=== PATIENT | female | born 1945 | race African-American/Black ===

== ENCOUNTER → 2018-01-12 | Outpatient (CLI) | payer MEDICARE, BC ==
--- NOTE | 2018-01-13 12:57 | RAD ---
DATE: 01/12/2018 EXAM: MAMMO RYLAN SCREENING BILATERAL HISTORY: Routine screening COMPARISON: 12/14/2016 This study was interpreted with the benefit of Computerized Aided Detection (CAD). The breast parenchyma is heterogeneously dense, which could reduce sensitivity of mammography. Breast parenchyma level C. FINDINGS: 2-D and 3-D tomosynthesis imaging was performed in CC and MLO projections. There is a 7 mm oval-shaped nodule in the left breast at the 12:00 location, best seen on CC rylan image #31 and oblique rylan image #33. It appears to have been present on multiple previous exams and is unchanged. No new or enlarging breast densities are seen. Benign type calcifications are present in both breasts. No suspicious microcalcifications have developed. IMPRESSION: Stable mammograms without evidence of malignancy. BI-RADS CATEGORY: 2 BENIGN FINDING(S) RECOMMENDED FOLLOW-UP: 12M 12 MONTH FOLLOW-UP PQRS compliance statement: Patient information was entered into a reminder system with a target due date for the next mammogram. Mammography is a sensitive method for finding small breast cancers, but it does not detect them all and is not a substitute for careful clinical examination. A negative mammogram does not negate a clinically suspicious finding and should not result in delay in biopsying a clinically suspicious abnormality. "Our facility is accredited by the [employer] Mammography Program."
== END | disposition home or self-care (01) ==
LOC: MAMMO 11:27
PROVIDERS: ATTEND Family Medicine
DX: Z12.31 Encounter for screening mammogram for malignant neoplasm of breast (principal)
CPT/HCPCS: 77063; 77067

== ENCOUNTER → 2019-01-26 | Outpatient (CLI) | payer MEDICARE, BC ==
--- NOTE | 2019-01-26 14:01 | RAD ---
DATE: 01/26/2019 EXAM: MAMMO RYLAN SCREENING BILATERAL HISTORY: Routine screening COMPARISON: 01/12/2018 This study was interpreted with the benefit of Computerized Aided Detection (CAD). Breast Density: HETERO The breast parenchyma is heterogenously dense, which could reduce sensitivity of mammography. Breast parenchyma level C. FINDINGS: 2-D and 3-D tomosynthesis imaging was performed in CC and MLO projections. A small smooth nodule at the 12:00 location in the left breast is unchanged. No new or enlarging breast densities are seen. Scattered benign type calcifications are present. No suspicious microcalcifications have developed. IMPRESSION: Stable mammograms without evidence of malignancy. BI-RADS CATEGORY: 2 BENIGN FINDING(S) RECOMMENDED FOLLOW-UP: 12M 12 MONTH FOLLOW-UP PQRS compliance statement: Patient information was entered into a reminder system with a target due date for the next mammogram. Mammography is a sensitive method for finding small breast cancers, but it does not detect them all and is not a substitute for careful clinical examination. A negative mammogram does not negate a clinically suspicious finding and should not result in delay in biopsying a clinically suspicious abnormality. "Our facility is accredited by the [employer] Mammography Program."
== END | disposition home or self-care (01) ==
LOC: MAMMO 11:04
PROVIDERS: ATTEND Family Medicine
DX: Z12.31 Encounter for screening mammogram for malignant neoplasm of breast (principal)
CPT/HCPCS: 77063; 77067

== ENCOUNTER → 2020-07-22 | Outpatient (CLI) | payer MEDICARE, BC ==
[~2020-07-22] MED LIST: IOHEXOL 350 MG/ML 100 ML VIAL. IV ONE
--- NOTE | 2020-07-22 14:35 | RAD ---
EXAM: CT chest with contrast - pulmonary embolus protocol CLINICAL HISTORY: Reason: COUGH, ELEVATED D DIMER / Spl. Instructions: SMOKER X 50 YRS, LESS 1/2 PK/DAY, EMPHYSEMA, HEART DZ, BLADDER CA / History: . COMPARISON: None. TECHNIQUE: CT of the chest following the administration of intravenous contrast during the pulmonary arterial phase. Axial, coronal and sagittal reformatted images were generated including MIP images. ---PQRS compliance statement - One or more of the following individualized dose reduction techniques were utilized for this study: 1. Automated exposure control 2. Adjustment of the mA and/or kV according to patient size 3. Use of iterative reconstruction technique--- FINDINGS: CHEST: Diagnostic quality: Adequate. Pulmonary emboli: None seen Right heart strain: None Pulmonary arteries: Normal in caliber. Heart is not enlarged. No pericardial effusion. Aortic root calcifications are seen. Coronary artery calcifications are seen. No pleural effusion or pneumothorax. No axillary lymphadenopathy. Precarinal lymph node measures 1.9 x 1.5 cm (series 4 image 47). AP window lymph node is enlarged measuring 1.8 x 1.1 cm. Enlarged hilar lymph nodes are also seen. 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 Landscape [employer] left hilar lymph node measures 1.8 x 1.3 cm. Bilateral groundglass opacities are seen. No suspicious lung nodule or mass.Emphysematous changes. Linear interstitial opacities bilaterally. No lobar consolidation. Visualized Upper abdomen: Left upper pole renal cyst is seen. Right hepatic lobe cyst is noted. No further follow-up is necessary. Since aortic calcifications are seen. Bones: Multilevel compression fractures are seen, T9-10-11, age-indeterminate. IMPRESSION: 1. No evidence for acute pulmonary embolus. 2. Groundglass opacities are seen bilaterally possibly infectious or inflammatory process. Imaging follow-up to resolution is recommended. 3. Bilateral mediastinal and hilar lymph nodes are seen, possibly reactive given the bilateral groundglass opacities, although other processes such as sarcoidosis are not excluded. Electronically signed by: Kwame Rich MD (07/22/2020 2:32 PM) [id number]
== END | disposition home or self-care (01) ==
LOC: CT 08:59
PROVIDERS: ATTEND Family Medicine
DX: R79.89 Other specified abnormal findings of blood chemistry (principal)
CPT/HCPCS: 71275; Q9967